=== PATIENT | female | born 1945 | race Caucasian/White ===

== ENCOUNTER 2018-08-09 00:04 | Emergency (ER) | payer OTHER ==
[~2018-08-09] VITALS: Ht 152.4 cm; Wt 68.0 kg
[2018-08-09] MEDS ORDERED: DUTOPROL 25-121 EACH PO (00:42)
[2018-08-09] MEDS ORDERED: LIPITOR 10 MG10 M1 PO (00:43)
[2018-08-09] MEDS ORDERED: TRAZODONE HCL100 MG PO (00:44)
[2018-08-09] MEDS ORDERED: MOBIC7.5 MG PO (00:44)
[2018-08-09 01:33] LABS: ABSOLUTE NEUTROPHILS 5.9 thou/uL (1.4-8.2); BASOPHILS 0.6 % (0.0-2.0); EOSINOPHILS 0.9 % (0.0-3.0); HEMATOCRIT 38.4 % (37.0-47.0); HEMOGLOBIN 12.9 gm/dL (12.0-15.0); LYMPHOCYTES 18.3 % (24.0-44.0); MCH 31.7 pg (26.0-34.0); MCHC 33.5 g/dL (28.0-37.0); MCV 94.7 fL (80.0-100.0); MONOCYTES 11.5 % (1.0-8.0); PLATELET COUNT 203 thou/uL (150-400); POLYS 68.7 % (36.0-66.0); RBC 4.06 mil/uL (4.20-5.00); RDW 14.3 % (10.5-14.5); WBC 8.6 thou/uL (4.0-11.0)
[2018-08-09 01:44] LABS: ANION GAP 10 mmol/L (7-16); BUN 11 mg/dL (7-18); CALCIUM 8.3 mg/dL (8.5-10.1); CHLORIDE 103 mmol/L (98-107); CO2 28 mmol/L (21-32); CREATININE 0.9 mg/dL (0.6-1.0); GLUCOSE 106 mg/dL (74-106); POTASSIUM 3.6 mmol/L (3.5-5.1); SODIUM 141 mmol/L (136-145)
[2018-08-09 01:56] LABS: ALBUMIN 3.5 g/dL (3.4-5.0); MAGNESIUM 2.1 mg/dL (1.8-2.4); SGOT 31 U/L (15-37); SGPT 23 U/L (30-65); TOTAL BILIRUBIN 0.6 mg/dL (<0.1-1.0); TROPONIN-I <0.06 ng/mL (<0.06)
[2018-08-09] MEDS ORDERED: TYLENOL EXTRA500 MG PO (02:16)
[2018-08-09] MEDS ORDERED: ROBAXIN500 MG PO (02:16)
[2018-08-09 02:34] VITALS: BP 130/62
--- NOTE | 2018-08-11 07:57 | EKG ---
[address] [address] ELECTROCARDIOGRAM REPORT Name: CLARENCE HURT Room #: [facility]P [facility]ENTERJyotsna[facility] [id number] ������������������ Admission: 08/09/18 ������������������ Attend Phys: Discharge: 08/09/18 ������������������ Date of : 45 Report #: [id number] ����������������������������������������������������������������� [id number] THIS REPORT FOR: //name// [facility] ED Test Date: 2018-08-09 Test Time: 01:16:32 Pat Name: CLARENCE HURT Department: Room: Gender: F Installations Inspector: teresa : 1945 Requested By: Barry Bowen Order Number: [id number] MD: Eric Montano Measurements Intervals [place] Rate: 99 P: 67 MA: 188 QRS: 36 QRSD: 77 T: 55 QT: 359 QTc: 461 Interpretive Statements Sinus rhythm Normal tracing No previous ECG available for comparison Electronically Signed On 08-11-2018 7:57:00 CDT by Eric Montano [email or web address] ��������������������������������������������� <ELECTRONICALLY SIGNED> ���������������������������������������� By: Eric Montano MD, [facility] ��������������������������������������������� 08/11/18 [id number] Eric Montano MD, FACC /EPI
== END 2018-08-09 02:34 | disposition home or self-care (01) ==
LOC: ER 00:04
PROVIDERS: Emergency Medicine
DX: S29.012A Strain of muscle and tendon of back wall of thorax, initial encounter (principal); R60.0 Localized edema; I10 Essential (primary) hypertension; E78.00 Pure hypercholesterolemia, unspecified; F17.210 Nicotine dependence, cigarettes, uncomplicated; Z90.710 Acquired absence of both cervix and uterus; V89.2XXA Person injured in unspecified motor-vehicle accident, traffic, initial encounter; Y93.89 Activity, other specified; Y92.89 Other specified places as the place of occurrence of the external cause; Y99.8 Other external cause status